=== PATIENT | female | born 1935 | race Hispanic/Latino ===

== ENCOUNTER 2017-01-08 20:22 | Inpatient (IN) | payer MEDICARE, OTHER ==
[2017-01-08 20:24] VITALS: BMI 37.0
[2017-01-08] MEDS ORDERED: diltiaZEM IVPB 100mg in NS 100 ML IV PRN (20:48)
--- NOTE | 2017-01-08 20:49 | ED PDOC ---
Arrival/HPI - General Chief Complaint: Palpitations Time Seen by Provider: 01/08/17 20:23 Historian: Patient - History of Present Illness Narrative History of Present Illness (Text): 01/08/17 20:23 A 81 year old female, whose past medical history includes CAD, CABG (16 years ago), and paroxysmal atrial fibrillation with previous ablation therapy (on eliquis), presents to the emergency department complaining of a irregularly rapid heart rate for the past 24 hours. Patient notes the occasional chest discomfort with coughing. Patient reports she has had a upper respiratory illness. Patient denies any shortness of breath, back pain, leg pain, abdominal pain, or any other complaints at this time. PMD: Dr. Schneider Time/Duration: 24 hours Symptom Onset: Sudden Symptom Course: Unchanged Quality: Other Activities at Onset: Rest Context: Home Past Medical History - Provider Review Nursing Documentation Reviewed: Yes - Infectious Disease Hx of Infectious Diseases: None - Tetanus Immunization Tetanus Immunization: Unknown - Cardiac Hx Atrial Fibrillation: Yes (? ablation) Hx Peripheral Edema: Yes Other/Comment: triple bypass - HEENT Hx HEENT Disorder: (glasses) Hx Macular Degeneration: Yes (Left) - Renal Hx Renal Disorder: No - Endocrine/Metabolic Hx Hypothyroidism: Yes - Hematological/Oncological Hx Blood Disorders: No - Integumentary Hx Dermatological Disorder: No - Musculoskeletal/Rheumatological Hx Arthritis: Yes Hx Unsteady Gait: Yes - Gastrointestinal Hx Gastroesophageal Reflux: Yes - Genitourinary/Gynecological Hx Genitourinary Disorders: No - Psychiatric Hx Anxiety: Yes Hx Depression: Yes Hx Substance Use: No - Surgical History Hx Coronary Artery Bypass Graft: Yes Hx Hysterectomy: Yes - Anesthesia Hx Anesthesia: Yes Hx Anesthesia Reactions: No Hx Malignant Hyperthermia: No - Suicidal Assessment Feels Threatened In Home Enviroment: No Family/Social History - Physician Review Nursing Documentation Reviewed: Yes Family/Social History: Unknown Family HX Smoking Status: Never Smoked Hx Alcohol Use: No Hx Substance Use: No Hx Substance Use Treatment: No Allergies/Home Meds Allergies/Adverse Reactions: Allergies erythromycin base Allergy (Verified 01/08/17 20:25) RASH Penicillins Allergy (Verified 01/08/17 20:25) RASH Review of Systems - Physician Review All systems were reviewed & negative as marked: Yes - Review of Systems Respiratory: Cough. absent: SOB Cardiovascular: Other (irregularly rapid heart rate) Gastrointestinal: absent: Abdominal Pain Musculoskeletal: absent: Back Pain, Other (lower extremity pain) Physical Exam Vital Signs Reviewed: Yes Vital Signs Temp Pulse Resp BP Pulse Ox 01/08/17 22:24 97.9 F 97 H 16 110/67 95 01/08/17 21:05 97.8 F 87 16 125/67 96 01/08/17 20:53 126 H 147/116 H 01/08/17 20:39 98.7 F 126 H 18 147/116 H 96 Temperature: Afebrile Blood Pressure: Hypertensive Pulse: Tachycardic Respiratory Rate: Normal Appearance: Positive for: Well-Appearing, Non-Toxic, Comfortable Pain Distress: None Mental Status: Positive for: Alert and Oriented X 3 - Systems Exam Head: Present: Atraumatic, Normocephalic Pupils: Present: PERRL Extroacular Muscles: Present: EOMI Conjunctiva: Present: Normal Mouth: Present: Moist Mucous Membranes Neck: Present: Normal Range of Motion Respiratory/Chest: Present: Clear to Auscultation, Good Air Exchange. No: Respiratory Distress, Accessory Muscle Use, Wheezes, Rales, Rhonchi Cardiovascular: Present: Irregular Rhythm, Tachycardic. No: Murmurs Abdomen: Present: Normal Bowel Sounds. No: Tenderness, Distention, Peritoneal Signs Back: Present: Normal Inspection Upper Extremity: Present: Normal Inspection. No: Cyanosis, Edema Lower Extremity: Present: Normal Inspection. No: Edema Neurological: Present: GCS=15, CN II-XII Intact, Speech Normal Skin: Present: Warm, Dry, Normal Color. No: Rashes Psychiatric: Present: Alert, Oriented x 3, Normal Insight, Normal Concentration Medical Decision Making ED Course and Treatment: 01/08/17 20:25 Impression: A 81 year old female with irregularly rapid heart rate. Differential Diagnosis include but are not limited to: Tachycardia vs. ACS Plan: -- EKG -- Chest X-ray -- Labs -- Cardizem -- Reassess and disposition Progress Notes: EKG: Ordered, reviewed, and independently interpreted the EKG. Rate : 134 BPM Rhythm : Atrial fibrillation with rapid ventricular response Interpretation : ST/T change in the inferior lateral leads Comparison : No change from previous EKG in 07/2014 for comparison. 01/08/17 20:59 Reviewed radiology, CXR shows no active disease. 01/08/17 22:[address] Gupta, who is aware and agrees with plan. Accepts pt in to her service. Pt will be admitted to Telemetry for rapid atrial fibrillation and bronchitis. Requests Dr. Ordaz on consult. - Lab Interpretations Lab Results: 01/08/17 20:40 01/08/17 20:40 Lab Results 01/08/17 20:40: WBC 14.5 H D, RBC 4.16, Hgb 13.2, Hct 39.4, MCV 94.7, MCH 31.7, MCHC 33.5, RDW 13.8, Plt Count 283, MPV 10.1, PT 12.4 H, INR 1.15 H, APTT 35.2 H , Sodium 136, Potassium 4.0, Chloride 102, Carbon Dioxide 23, Anion Gap 15, BUN 12, Creatinine 0.8, Est GFR ( Amer) > 60, Est GFR (Non-Af Amer) > 60, Random Glucose 134 H, Calcium 9.1, Total Bilirubin 1.2, AST 33, ALT 32, Alkaline Phosphatase 59, Lactate Dehydrogenase 484, Total Creatine Kinase 45, Troponin I 0.02 D, Total Protein 7.9, Albumin 4.0, Globulin 3.8, Albumin/ Globulin Ratio 1.1 I have reviewed the lab results: Yes - RAD Interpretation Narrative RAD Interpretations (Text): CXR shows no active disease. Radiology Orders: 01/08/17 20:34 CHEST PORTABLE [RAD] Stat Cloth Folder Machine: ED Physician - EKG Interpretation Interpreted by ED Physician: Yes Type: 12 lead EKG - Medication Orders Current Medication Orders: Albuterol/Ipratropium (Duoneb 3 Mg/0.5 Mg (3 Ml) Ud) 3 ml IH Q4H PRN PRN Reason: Wheezing Stop: 01/09/17 02:31 diltiaZEM IVPB 100mg in NS (Cardizem 100mg In Ns) 100 mls @ 5 mls/hr IV .Q20H PRN; Protocol; 5 MG/HR PRN Reason: TITRATE PER MD ORDER Last Admin: 01/08/17 21:00 Dose: 5 MLS/HR Titration Intervention Document 01/08/17 21:00 CHEL (Rec: 01/08/17 21:00 [facility] [id number]) Titration Intake Container Volume 100 Titration Dosing Titration Dose 5 IV Rate 5 Intake/Decrease Start eMAR Start Stop Document 01/08/17 21:00 A (Rec: 01/08/17 21:00 [facility]-[id number]) Intravenous Solution Start Date 01/08/17 Start Time 21:00 Levofloxacin/Dextrose (Levaquin 750mg) 150 mls @ 100 mls/hr IV STAT STA Stop: 01/08/17 23:56 Discontinued Medications Diltiazem HCl (Cardizem) 20 mg IVP ONCE ONE Stop: 01/08/17 20:38 Last Admin: 01/08/17 20:53 Dose: 20 MG MAR Pulse and Blood Pressure Document 01/08/17 20:53 A (Rec: 01/08/17 20:53 [id number] Pulse Pulse Rate (60-90 beats/min) 126 Blood Pressure Blood Pressure (100/60-150/90 mm Hg) 147/116 IVP Administration Document 01/08/17 20:53 FJA (Rec: 01/08/17 20:53 [facility]-[id number]) Charges for Administration # of IVP Administrations 1 - Scribe Statement The provider has reviewed the documentation as recorded by the Elie Angelo Provider Scribe Attestation: All medical record entries made by the Scribe were at my direction and personally dictated by me. I have reviewed the chart and agree that the record accurately reflects my personal performance of the history, physical exam, medical decision making, and the department course for this patient. I have also personally directed, reviewed, and agree with the discharge instructions and disposition. Disposition/Present on Arrival - Present on Arrival Any Indicators Present on Arrival: No History of DVT/PE: No History of Uncontrolled Diabetes: No Urinary Catheter: No History of Decub. Ulcer: No History Surgical Site Infection Following: None - Disposition Have Diagnosis and Disposition been Completed?: Yes Diagnosis: Rapid atrial fibrillation, Bronchitis Disposition: HOSPITALIZED Disposition Time: 22:34 Patient Plan: Admission Patient Problems: Current Active Problems Problem Status Diagnosed Bronchitis Acute Rapid atrial fibrillation Acute Condition: STABLE Referrals: Diogo Schneider MD [Primary Care Provider] - Follow up with primary
[2017-01-08 20:51] LABS: HEMATOCRIT 39.4 % (36.0-48.0); MEAN CELL VOLUME 94.7 fL (80.0-105.0); MEAN CORPUSCULAR HEMOGLOBIN 31.7 pg (25.0-35.0); MEAN CORPUSCULAR HGB CONC 33.5 g/dl (31.0-37.0); MEAN PLATELET VOLUME 10.1 fl (7.0-11.0); RED CELL DISTRIBUTION WIDTH 13.8 % (11.5-14.5); WHITE BLOOD COUNT 14.5 10^3/ul (4.5-11.0)
[2017-01-08 21:00] LABS: ALB/GLOB RATIO 1.1 (1.1-1.8); ALKALINE PHOSPHATASE 59 U/L (38-133); ALT/SGPT 32 U/L (7-56); AST/SGOT 33 U/L (15-39); BILIRUBIN,TOTAL 1.2 mg/dL (0.2-1.3); BLOOD UREA NITROGEN 12 mg/dL (7-21); CALCIUM 9.1 mg/dL (8.4-10.5); CARBON DIOXIDE 23 mmol/L (21-33); CHLORIDE 102 mmol/L (98-107); GFR AFRICAN-AMERICAN > 60; GLUCOSE,RANDOM 134 mg/dL (70-110); SODIUM 136 mmol/L (132-148); TOTAL PROTEIN 7.9 g/dL (5.8-8.3)
[2017-01-08 21:10] LABS: TROPONIN I 0.02 ng/mL
[2017-01-08 21:11] LABS: INR 1.15 (0.93-1.08); PARTIAL THROMBOPLASTIN TIME 35.2 Seconds (23.7-30.8)
[2017-01-08] MEDS ORDERED: Albuterol-Ipratrop 3 mg / 0.5 (3 ml) UD IH PRN (22:30)
[2017-01-09] MEDS ORDERED: Levalbuterol 1.25 MG/3 ML Inhal Soln UD IH STA (00:46)
[2017-01-09] MEDS ORDERED: diltiaZEM IVPB 100mg in NS 100 ML IV PRN (00:48)
[2017-01-09] MEDS: guaiFENesin 200 mg/10 ml Syrup UD PO PRN ×3 (00:55→13:23)
--- NOTE | 2017-01-09 01:01 | CP.PCM.PN ---
Subjective - Date & Time of Evaluation Date of Evaluation: 01/09/17 Time of Evaluation: 00:44 - Subjective Subjective: Patient was seen at bedside because she compalined of headache , cough ,has audible wheezing. Head ache is in frontal area,states that it is sinus head ache, severe headache for past one hour. Denies dizziness, nausea, paraesthesia, chest pain, sob. Has mild cough and wheezing. Pertinent medical record was reviewed. This 81 year old white woman was admitted with palpitation, leukocytosis, atrial fibrillation with RVR. Has PMH of CAD,paroxysmal atrial fibrillation, Hypothyroidism, macular degeneration(Left), Arthritis,GERD , CABG, hystrectomy. Objective - Vital Signs/Intake and Output Vital Signs (last 24 hours): Temp Pulse Resp BP Pulse Ox 97.9 F 97 H 16 110/67 95 01/08/17 22:24 01/08/17 22:24 01/09/17 00:19 01/08/17 22:24 01/08/17 22:24 - Medications Medications: Current Medications Albuterol/Ipratropium (Duoneb 3 Mg/0.5 Mg (3 Ml) Ud) 3 ml IH Q4H PRN PRN Reason: Wheezing Stop: 01/09/17 02:31 diltiaZEM IVPB 100mg in NS (Cardizem 100mg In Ns) 100 mls @ 5 mls/hr IV .Q20H PRN; Protocol; 5 MG/HR PRN Reason: TITRATE PER MD ORDER Last Admin: 01/08/17 21:00 Dose: 5 mls/hr - Labs Labs: PT 12.4 Seconds (9.9-11.8) H 01/08/17 20:40 INR 1.15 (0.93-1.08) H 01/08/17 20:40 APTT 35.2 Seconds (23.7-30.8) H 01/08/17 20:40 - Constitutional Appears: Well, No Acute Distress - Head Exam Head Exam: ATRAUMATIC, NORMAL INSPECTION, NORMOCEPHALIC - Eye Exam Eye Exam: Normal appearance - ENT Exam ENT Exam: Normal External Ear Exam - Neck Exam Neck Exam: Normal Inspection - Respiratory Exam Respiratory Exam: Wheezes (Bilateral.), NORMAL BREATHING PATTERN - Cardiovascular Exam Cardiovascular Exam: Irregular Rhythm. absent: JVD - GI/Abdominal Exam GI & Abdominal Exam: absent: Distended - Rectal Exam Rectal Exam: Deferred - Extremities Exam Extremities Exam: Normal Inspection - Back Exam Back Exam: NORMAL INSPECTION - Neurological Exam Neurological Exam: Alert, Oriented x3 - Psychiatric Exam Psychiatric exam: Normal Affect, Normal Mood - Skin Skin Exam: Normal Color Assessment and Plan - Assessment and Plan (Free Text) Assessment: A/P : Stress headache . Cough. Atrial fibrillation with RVR. CAD. Arthritis. GERD. Tylenol 650 mg PO x 1. Xopenex 1.25 mg Neb treatment stat. Robitussin as ordered. Continue present management.
--- NOTE | 2017-01-09 08:02 | RAD ---
HISTORY: Tachycardia COMPARISON: 07/30/2014. FINDINGS: LUNGS: There is pulmonary venous congestion and interstitial pulmonary edema. There is no focal consolidation. There is linear scarring in the left lower lobe. PLEURA: No significant pleural effusion identified, no pneumothorax apparent. CARDIOVASCULAR: There is persistent moderate cardiomegaly. Status post CABG. OSSEOUS STRUCTURES: No significant abnormalities. VISUALIZED UPPER ABDOMEN: Normal. OTHER FINDINGS: None. IMPRESSION: Mild pulmonary venous congestion and interstitial pulmonary edema. Persistent moderate cardiomegaly.
[2017-01-09 09:07] LABS: HEMATOCRIT 36.2 % (36.0-48.0); MEAN CELL VOLUME 95.3 fL (80.0-105.0); MEAN CORPUSCULAR HEMOGLOBIN 32.1 pg (25.0-35.0); MEAN CORPUSCULAR HGB CONC 33.7 g/dl (31.0-37.0); MEAN PLATELET VOLUME 9.8 fl (7.0-11.0); RED CELL DISTRIBUTION WIDTH 13.8 % (11.5-14.5); WHITE BLOOD COUNT 11.3 10^3/ul (4.5-11.0)
[2017-01-09] MEDS: Metoprolol Succinate 25 mg XL Tab PO SCH (09:26)
[2017-01-09 09:42] LABS: FREE T4 1.43 ng/dL (0.78-2.19)
--- NOTE | 2017-01-09 09:44 | CON ---
DATE: 01/09/2017 INDICATIONS: Atrial fibrillation with rapid ventricular response, chest pain, body aches. HISTORY OF PRESENT ILLNESS: This is an 81-year-old woman known to me with chronic atrial fibrillation, on metoprolol and Eliquis, admitted through the Emergency Room yesterday when she presented with diffuse aches, URI symptoms, chest pain (cough and sputum production), headache and rapid heart action. She was found to have atrial fibrillation with rapid ventricular response. She was started on IV Cardizem. She was admitted to telemetry. Today, she is resting in bed with chest pain related to cough, body aches and headache. There is no shortness of breath, orthopnea, PND, syncope, presyncope, lightheadedness, dizziness, vertigo, edema, claudication, rigor, sweats, hemoptysis, abdominal pain, nausea, vomiting, diarrhea, constipation, or melena. PAST MEDICAL HISTORY: Notable for coronary artery disease with remote coronary bypass surgery. She has chronic afib. She underwent a-flutter ablation many years ago. She has a history of hypertension, hyperlipidemia, anxiety, depression, hypothyroidism, macular degeneration and a hysterectomy. There is no history of rheumatic fever, myocardial infarction, congestive heart failure, stroke, TIA or gout. MEDICATIONS: At the time of admission included albuterol, nitroglycerin for p.r.n. use, Flonase, metoprolol ER 25 mg daily, Eliquis 5 mg b.i.d., Wellbutrin , potassium chloride, Levoxyl, Xanax, coenzyme Q10. ALLERGIES: SHE NOTES PENICILLIN AND ERYTHROMYCIN. SOCIAL HISTORY: She lives at home. She is ambulatory. She does not smoke cigarettes. She does not drink alcohol. FAMILY HISTORY: Noncontributory. REVIEW OF SYSTEMS: A 10-point review of systems otherwise unremarkable except as noted above. PHYSICAL EXAMINATION: GENERAL: She is a well-developed woman lying in bed on telemetry in no acute distress. VITAL SIGNS: Notable for atrial fibrillation at 98 beats per minute. She is on an IV Cardizem drip. She is afebrile. Blood pressure 125/55, respirations 16-22, O2 sat 95%-98% on nasal cannula. HEENT: Reveals no neck vein distention, thyromegaly, or carotid bruits. Mucous membranes are moist. Conjunctivae are pink. NECK: Supple. LUNGS: Valles clear. HEART: Revealed normal first and second heart sounds. ABDOMEN: Soft, bowel sounds present. No mass, organomegaly, tenderness, rebound, or guarding. No CVA tenderness. No palpable abdominal aortic aneurysm. EXTREMITIES: Revealed no cyanosis, clubbing, or edema. NEUROLOGIC: She is awake, alert and oriented. SKIN: Warm and dry. No rash or cellulitis. LABORATORY AND IMAGING: A portable chest x-ray revealed mild pulmonary venous congestion, interstitial pulmonary edema. EKG shows atrial fibrillation, rapid ventricular response, ST-T wave changes consistent with ischemia. White count 14,500, hemoglobin 13.2, hematocrit 39.4 , platelet count normal. PT 12.4, INR 1.15, PTT 35.2. Electrolytes, BUN, creatinine, blood sugar, LFTs unremarkable. CK 45, troponin 0.02. IMPRESSION: The patient is an 81-year-old woman with chronic atrial fibrillation, status post coronary bypass surgery remotely with a history of an atrial flutter ablation remotely, presents with URI symptoms including cough, diffuse body aches, headache, chest pain related to coughing and rapid atrial fibrillation. At this time, she is on telemetry. She is getting IV Cardizem. I will start her metoprolol p.o. I will get a troponin this morning. I will order an echocardiogram. I will review her old records. I believe the chest x-ray report is an overread. I do not see evidence of pulmonary edema or congestive heart failure on the portable chest film. She is being cultured. She is getting antibiotics, Xopenex, Tylenol, Robitussin, Eliquis. She can be out of bed to a chair. We will monitor I's and O's. We will check stool for occult blood. I will review her old records. I will follow along with you and make additional recommendations based on her clinical course. Elia Hernandez MD cc: [id number] TT: 01/09/2017 09:44:19 Confirmation # [id number] Dictation # [id number] malik [id number]
[2017-01-09 09:56] LABS: THYROID STIMULATING HORMONE 1.76 mIU/mL (0.46-4.68)
--- NOTE | 2017-01-09 12:58 | CT ---
PROCEDURE: CT Chest without contrast HISTORY: sob COMPARISON: None. TECHNIQUE: Contiguous axial images were obtained through the chest without intravenous contrast enhancement. Sagittal and coronal reconstructions were performed. Radiation dose (DLP): 664 mGy-cm. This CT exam was performed using one or more of the following dose reduction techniques: Automated exposure control, adjustment of the mA and/or kV according to patient size, and/or use of iterative reconstruction technique. FINDINGS: LUNGS: Minimal linear scarring is seen at both lung bases. There is no focal consolidation MEDIASTINUM: Unremarkable thoracic aorta. No aneurysm. There is mild to moderate cardiomegaly. There is aortic and coronary artery calcification. Main pulmonary artery unremarkable. No vascular congestion. No lymphadenopathy. PLEURA: No pleural fluid. No pneumothorax. BONES: No fracture. No destructive lesion. UPPER ABDOMEN: Grossly unremarkable. OTHER FINDINGS: None. IMPRESSION: Unremarkable non-contrast enhanced CT of the chest.
[2017-01-09 13:11] LABS: MEAN CELL VOLUME 94.7 fL (80.0-105.0); MEAN CORPUSCULAR HEMOGLOBIN 31.8 pg (25.0-35.0); MEAN CORPUSCULAR HGB CONC 33.6 g/dl (31.0-37.0); MEAN PLATELET VOLUME 9.6 fl (7.0-11.0); RED CELL DISTRIBUTION WIDTH 13.8 % (11.5-14.5); WHITE BLOOD COUNT 11.9 10^3/ul (4.5-11.0)
[2017-01-09] MEDS: diltiaZEM IVPB 100mg in NS 100 ML IV PRN (13:23)
[2017-01-09] MEDS: Levalbuterol 0.63 MG/3 ML Inhal Soln UD IH PRN ×2 (14:38→20:15)
--- NOTE | 2017-01-09 16:25 | CARD ---
APPROVED REPORT EKG Measurement Heart [id number] <Conclusion> Atrial fibrillation with rapid ventricular response ST & T wave abnormality, consider inferolateral ischemia or digitalis effect Abnormal ECG
[2017-01-10] MEDS: diltiaZEM IVPB 100mg in NS 100 ML IV PRN (04:42)
[2017-01-10] MEDS: guaiFENesin 200 mg/10 ml Syrup UD PO PRN ×2 (04:47→20:33)
[2017-01-10] MEDS: Levalbuterol 0.63 MG/3 ML Inhal Soln UD IH PRN ×3 (05:00→23:10)
[2017-01-10 06:52] LABS: ALKALINE PHOSPHATASE 51 U/L (38-133); ALT/SGPT 24 U/L (7-56); AST/SGOT 28 U/L (15-39); BILIRUBIN,TOTAL 0.9 mg/dL (0.2-1.3); BLOOD UREA NITROGEN 12 mg/dL (7-21); CALCIUM 8.7 mg/dL (8.4-10.5); CARBON DIOXIDE 28 mmol/L (21-33); CHLORIDE 102 mmol/L (95-110); GFR AFRICAN-AMERICAN > 60; GLUCOSE,RANDOM 102 mg/dL (70-110); SODIUM 135 mmol/L (132-148); TOTAL PROTEIN 6.8 g/dL (5.8-8.3)
[2017-01-10 06:53] LABS: HEMATOCRIT 34.9 % (36.0-48.0); MEAN CELL VOLUME 95.1 fL (80.0-105.0); MEAN CORPUSCULAR HEMOGLOBIN 31.6 pg (25.0-35.0); MEAN CORPUSCULAR HGB CONC 33.2 g/dl (31.0-37.0); MEAN PLATELET VOLUME 10.3 fl (7.0-11.0); RED CELL DISTRIBUTION WIDTH 13.9 % (11.5-14.5); WHITE BLOOD COUNT 9.2 10^3/ul (4.5-11.0)
[2017-01-10] MEDS: Metoprolol Succinate 25 mg XL Tab PO SCH (07:55)
--- NOTE | 2017-01-10 08:12 | CP.PCM.PN ---
Subjective - Date & Time of Evaluation Date of Evaluation: 01/10/17 Time of Evaluation: 08:00 - Subjective Subjective: Stable on 2R. She feels better but still cough with brown sputum and rib pains. V/S noted. AF PE: Lungs: few rhonchi Cor.: irreg., S1S2 Abd.: soft xt.: no edema Neuro.: alert I/O= 1420/1700 BC X2 NG at 24 hrs. Labs: noted. trops neg x 2 sets Echo done: will check. Objective - Vital Signs/Intake and Output Vital Signs (last 24 hours): Temp Pulse Resp BP Pulse Ox 98.2 F 93 H 20 149/65 100 01/10/17 06:00 01/10/17 06:00 01/10/17 06:00 01/10/17 06:00 01/10/17 06:00 Intake and Output: 01/10/17 01/10/17 06:59 18:59 Intake Total 700 65 Output Total 950 Balance -250 65 - Medications Medications: Current Medications Acetaminophen (Tylenol 325mg Tab) 650 mg PO Q4 PRN PRN Reason: Headache Last Admin: 01/10/17 04:47 Dose: 650 mg Apixaban (Eliquis) 5 mg PO BID JENNY PRN Reason: Protocol Last Admin: 01/09/17 18:54 Dose: 5 mg Guaifenesin (Robitussin) 200 mg PO Q4H PRN PRN Reason: Cough and congestion Last Admin: 01/10/17 04:47 Dose: 200 mg diltiaZEM IVPB 100mg in NS (Cardizem 100mg In Ns) 100 mls @ 5 mls/hr IV .Q20H PRN; Protocol; 5 MG/HR PRN Reason: TITRATE PER MD ORDER Last Admin: 01/10/17 04:42 Dose: 5 mls/hr Levalbuterol HCl (Xopenex) 0.63 mg IH [id number] PRN PRN Reason: Shortness of Breath Last Admin: 01/10/17 05:00 Dose: 0.63 mg Metoprolol Succinate (Toprol Xl) 25 mg PO BRK JENNY Last Admin: 01/10/17 07:55 Dose: 25 mg - Labs Labs: 01/10/17 06:00 01/10/17 06:00 PT 12.4 Seconds (9.9-11.8) H 01/08/17 20:40 INR 1.15 (0.93-1.08) H 01/08/17 20:40 APTT 35.2 Seconds (23.7-30.8) H 01/08/17 20:40 Assessment and Plan - Assessment and Plan (Free Text) Plan: Assessment: Cough/Sputum Production/Chest Pain, Palpitations URI/Bronchitis AF CAD/CABG S/P remote A. Flutter ablation Chronic AF on Eliquis HLD Anxiety/Depression Hypothyroidism Macular Degeneration S/P hysterectomy Plan: As per Dr. Mullins Sputum C+S Check Echo PO Jyoti OOB to chair
--- NOTE | 2017-01-10 08:53 | CARD ---
APPROVED REPORT EXAM: Two-dimensional and M-mode echocardiogram with Doppler and color Doppler. Other Information Quality : AverageRhythm : INDICATION Dyspnea Atrial Fibrillation , COUGH 2D DIMENSIONS Left Atrium (2D)4.5 (1.6-4.0cm)IVSd1.4 (0.7-1.1cm) LVDd4.5 (3.9-5.9cm)PWd1.2 (0.7-1.1cm) LVDs3.6 (2.5-4.0cm)FS (%) 17.6 % LVEF (%)40.0 (>50%) M-Mode DIMENSIONS Aortic Root2.80 (2.2-3.7cm)Aortic Cusp Exc.1.70 (1.5-2.0cm) Aortic Valve AoV Peak Ysqbkhen124.0cm/Iam Peak GR.18mmHgLVOT Peak Psofjmnb563.0cm/s LVOT VTI24.20cmAI P 1/2 Didh817uf Mitral Valve E/A ratio0.0 TDI E/Lateral E'0.0E/Medial E'0.0 Pulmonary Valve PV Peak Iuzbbsgz43.1cm/sPV Peak Grad.2mmHg Tricuspid Valve TR Peak Mvgbliip711xp/sRAP [id number] Peak Gr.58mmHg [id number] LEFT VENTRICLE The left ventricle is normal size. There is normal left ventricular wall thickness. Left ventricle systolic function is mildly impaired. The Ejection Fraction is 40-45%. There is mild global hypokinesis. RIGHT VENTRICLE The right ventricle is normal size. ATRIA The left atrium is moderately dilated. The right atrium is moderately dilated. AORTIC VALVE The aortic valve is mildly sclerotic. There is trace aortic regurgitation. MITRAL VALVE The mitral valve is normal in structure. Mitral regurgitation is moderate. TRICUSPID VALVE The tricuspid valve is normal in structure. There is moderate to severe tricuspid regurgitation. There is moderate-severe pulmonary hypertension. PULMONIC VALVE The pulmonary valve is normal in structure. GREAT VESSELS The aortic root is normal in size. PERICARDIAL EFFUSION There is no pericardial effusion. <Conclusion> The left ventricle is normal size. There is normal left ventricular wall thickness. Left ventricle systolic function is mildly impaired. The Ejection Fraction is 40-45%. There is mild global hypokinesis. There is trace aortic regurgitation. Mitral regurgitation is moderate. There is moderate to severe tricuspid regurgitation. There is moderate-severe pulmonary hypertension.
[2017-01-10] MEDS: Metoprolol Succinate 50 mg XL Tab PO SCH (09:11)
[2017-01-11 05:24] LABS: URINE BILIRUBIN NEGATIVE (NEGATIVE); URINE BLOOD NEGATIVE (NEGATIVE); URINE GLUCOSE (UA) NEGATIVE (NEGATIVE); URINE KETONE NEGATIVE (NEGATIVE); URINE LEUKOCYTE ESTERASE SMALL Leu/uL (NEGATIVE); URINE PROTEIN NEGATIVE mg/dL (<30 mg/dL); URINE UROBILINOGEN 0.2 E.U./dL (<1 E.U./dL)
[2017-01-11 05:34] LABS: URINE APPEARANCE SLIGHT-CLOUDY (CLEAR); URINE COLOR YELLOW (YELLOW)
[2017-01-11 05:40] LABS: URINE EPITHELIAL CELLS 0 - 2 /hpf (0-5); URINE RBC 0 - 2 /hpf (0-2)
[2017-01-11] MEDS ORDERED: Levalbuterol 0.63 MG/3 ML Inhal Soln UD IH PRN (06:32)
--- NOTE | 2017-01-11 07:34 | HP ---
CHIEF COMPLAINT: Cough times and cough x 1 week with palpitations. HISTORY OF PRESENT ILLNESS: This is an 81-year-old woman, new patient to me, whom I am meeting for the first time today, 01/11/20 at the noon hour. I know her, since her son and I were in high school together, so she remembers me from my high school days, but this is the first time I am meeting her in a doctor/ patient relationship. Apparently, the patient reports that for a week at home she developed worsening cough with chest congestion and sputum production. Approximately 24 hours prior to admission, she felt herself go into atrial fibrillation. She tried Valsalva and cough, but it would not break. She does have a history of atrial fibrillation in 2013, but she converted back to sinus and reportedly, per her report, was in sinus rhythm since then. She see her farm laborer, Dr. Hernandez, on a regular basis, and with these symptoms she came to the Emergency Room late on the evening of Monday, 01/08. The call was placed from the Emergency Room to her regular physician who was being covered by another physician who came to see the patient yesterday. The patient then declined that physician and asked that her case be transferred to ok. Thankfully, a protection consultant had seen her and her orders were written, antibiotics were begun, and so today I am doing her history and physical after seeing her for the first time. She is already on antibiotics and cardiac medicines to control her rate. PAST MEDICAL HISTORY: Significant for atrial fibrillation in 2013, a myocardial infarction in 2000, coronary triple bypass surgery in 2000, cardiac ablation for AFib in 10/2013. PAST SURGICAL HISTORY: Significant for hysterectomy in 1994. ALLERGIES: SHE IS ALLERGIC TO PENICILLIN. HOME MEDICATIONS: Include p.r.n. aerosol treatment, and I am not certain that she is compliant with any other home medications. She does see her farm laborer , Dr. Hernandez, on a regular basis. SOCIAL HISTORY: She is a . Her postoperatively at the [facility]. She does not smoke or drink alcohol. REVIEW OF SYSTEMS: Multipoint review of systems is significant only for mild arthritis-type symptoms. So, essentially that is all. On physical exam, the patient was seen this Monday in room 260, bed 1. She is sitting out of bed in a chair. Awake, alert, and clear, and in good spirits. She is in no acute respiratory distress, but does have quite an annoying wet, phlegmy, congestive cough. Her heart rate remains irregular, but with a controlled rate. HEAD AND NECK: Unremarkable. Conjunctivae are pink. Mucous membranes are moist. NECK: Supple, without masses. There is no JVD present. Thyroid is not palpable. LUNGS: Clear. HEART: Irregular. ABDOMEN: Soft. Moderately overweight. EXTREMITIES: She has heavy legs, chubby ankles, but only minimal trace edema. IMPRESSION: 1. Severe bronchitis versus early pneumonia. 2. New onset/recurrence of atrial fibrillation. 3. History of cardiac ablation. 4. Status post coronary artery bypass graft x 3 in 2000. 5. PENICILLIN ALLERGY. 6. Never smoked. PLAN: Will continue current course, with cardiology followup and medications regarding her AFib, including IV Cardizem drip, Eliquis, and Lasix, and metoprolol succinate 50 mg daily. Will continue Xopenex. As I a visit her I see a bag of Azactam hanging in her current IV. Will continue treatment as an outpatient bronchitis with oral azithromycin. CT scan of the chest and chest x-ray were reviewed; both unremarkable. Will follow closely and consider pulmonary followup and/or infectious disease if her respiratory infection symptoms do not subside. Anatoly Mullins MD cc: [id number] TT: 01/11/2017 07:33:31 jn MTDD
[2017-01-11 07:47] LABS: ADD MANUAL DIFF? NO
[2017-01-11] MEDS: Budesonide 0.5 mg/2 ml Inhal Susp UD IH SCH ×2 (07:47→19:57)
[2017-01-11] MEDS: Levalbuterol 0.63 MG/3 ML Inhal Soln UD IH SCH ×3 (07:48→19:57)
[2017-01-11 07:55] LABS: BASO # 0.03 K/mm3 (0.0-2.0); BASO % 0.5 % (0.0-3.0); EOS # 0.5 (0.0-0.7); EOS % 7.7 % (1.5-5.0); GRAN # 3.86 (1.4-6.5); HEMATOCRIT 35.9 % (36.0-48.0); LYMPH # 1.6 (1.2-3.4); LYMPH % 23.9 % (22.0-35.0); MEAN CELL VOLUME 95.7 fL (80.0-105.0); MEAN CORPUSCULAR HEMOGLOBIN 31.2 pg (25.0-35.0); MEAN CORPUSCULAR HGB CONC 32.6 g/dl (31.0-37.0); MEAN PLATELET VOLUME 10.4 fl (7.0-11.0); MONO # 0.6 (0.1-0.6); MONO % 8.9 % (1.0-6.0); PLATELET COUNT 282 10^3/uL (120.0-450.0); RED CELL DISTRIBUTION WIDTH 13.9 % (11.5-14.5); WHITE BLOOD COUNT 6.5 10^3/ul (4.5-11.0)
[2017-01-11] MEDS: Metoprolol Succinate 50 mg XL Tab PO SCH (08:03)
[2017-01-11 08:17] LABS: ALKALINE PHOSPHATASE 55 U/L (38-133); ALT/SGPT 36 U/L (7-56); AST/SGOT 51 U/L (15-39); BILIRUBIN,TOTAL 0.9 mg/dL (0.2-1.3); BLOOD UREA NITROGEN 11 mg/dL (7-21); CALCIUM 8.8 mg/dL (8.4-10.5); CARBON DIOXIDE 32 mmol/L (21-33); CHLORIDE 98 mmol/L (98-107); GFR AFRICAN-AMERICAN > 60; GLUCOSE,RANDOM 89 mg/dL (70-110); MAGNESIUM 2.1 mg/dL (1.7-2.2); POTASSIUM 3.9 mmol/L (3.6-5.0); SODIUM 137 mmol/L (132-148)
--- NOTE | 2017-01-11 09:04 | CON ---
DATE: 01/11/2017 REASON FOR CONSULTATION: Cough. REFERRING PHYSICIAN: Dr. Mullins. HISTORY OF PRESENT ILLNESS: The patient is an 81-year-old female with past medical history significant for chronic atrial fibrillation (on Eliquis as outpatient), coronary artery disease, open heart surgery in the past, recurrent bronchitis, allergies, who presented to [facility] -- originally on 01/08/17 -- with main complaint of irregular rapid heart rate. In the Emergency Room, the patient was noted to be in rapid atrial fibrillation. She was thus admitted for additional evaluation. The patient is not short of breath at rest. However, the patient does state to dyspnea on exertion, cough, and minimal sputum production for the past 5 days. There is no history of chest pain, coughing up of blood or chest pain -- made worse with deep respirations. There is no history of temperatures, chills or infectious exposure. There is no history of night sweats, weight loss or appetite change prior to the above events. No history of leg or calf pains. No history of syncope or diaphoresis. No history of recent travel or trauma. REVIEW OF SYSTEMS: No history of nausea, vomiting or diarrhea. No acute urinary symptoms. No new neurological or musculoskeletal complaints. Rest of the review of systems is negative. ALLERGIES: TO ERYTHROMYCIN AND PENICILLIN. SOCIAL HISTORY: Negative for tobacco. Negative for alcohol. FAMILY HISTORY: No inheritable diseases. HOME MEDICATIONS: Not listed in the chart at the present time. PHYSICAL EXAMINATION: GENERAL: The patient appears comfortable at rest. She is not short of breath. VITAL SIGNS: Temperature is 98.2, pulse 87, respirations 18, blood pressure 142 /80. Oxygen saturation on nasal cannula is 100%. HEENT: Normocephalic, atraumatic. NECK: No JVD. CARDIOVASCULAR: Systolic ejection murmur at the lower left sternal border. No S3 gallop. LUNGS: Decreased breath sounds at the bases. Bilateral rhonchi and wheezing are appreciated. EXTREMITIES: Mild edema. No cyanosis, no clubbing. Calves are nontender to palpation. GASTROINTESTINAL: Abdomen is soft, nontender, nondistended. Bowel sounds are positive. SKIN: No acute rash. NEUROLOGIC: Limited at the present time. PERTINENT LABORATORY DATA: CAT scan of the chest was done yesterday and reviewed. There is minimal scarring noted at both lung bases. There is no focal consolidation or mass seen. There is no lymphadenopathy. There are no acute findings. CBC: White count 9.2, hemoglobin 11.6, hematocrit 34.9, platelets of 237. Complete metabolic profile: Completely within normal limits. EKG done in the Emergency Room: Rapid atrial fibrillation. IMPRESSION: 1. Acute bronchitis. 2. Status post rapid atrial fibrillation. 3. Coronary artery disease. 4. Mild anemia. PLAN: The patient presents to [facility] with main complaint of rapid irregular heartbeat for one day. In the Emergency Room, the patient was noted to be in rapid atrial fibrillation and thus admitted for additional evaluation and treatment. As above, in addition, the patient also complains of dyspnea on exertion, cough, and minimal sputum production for the past 5 days. I did review the CAT scan of the chest. There are no acute findings noted. On physical exam, the patient is in mild to moderate bronchospasm. However, there is no significant alveolar arterial gradient. Oxygen saturation on nasal cannula is 100%. I will start the patient on scheduled half strength Xopenex nebulizer treatments(given her arrhythmias), inhaled Pulmicort and low dose intravenous steroids this morning. I would continue with the treatment for the cardiac arrhythmias as per cardiology. Input by Dr. Hernandez is noted. The patient's ventricular response has been much more controlled over the past few days. Repeat a.m. labs are pending. Cultures are so far negative. Additional pulmonary intervention will be based on the clinical status of the patient. I will discuss the above with Dr. Mullins this morning. Thank you very much for this pulmonary consultation. Ishmael Drake MD cc: [id number] TT: 01/11/2017 09:03:49 Confirmation # [id number] Dictation # [id number] briseyda TRUJILLO
[2017-01-11] MEDS: MethylPREDNISolone 40 mg Vial IVP SCH ×2 (09:05→21:13)
[2017-01-11] MEDS: guaiFENesin 200 mg/10 ml Syrup UD PO PRN ×2 (09:40→21:14)
[2017-01-11] MEDS ORDERED: levoFLOXacin 500 MG TAB PO ONE (10:00)
--- NOTE | 2017-01-11 13:45 | PN ---
DATE: 01/11/2017 SUBJECTIVE: The patient is seen sitting in a chair on telemetry. She is feeling better. She feels that her symptoms have improved significantly since initiating steroid therapy earlier today. She de nies any chest pain. She is unaware of any palpitations. She remains in atrial fibrillation. CURRENT MEDICATIONS: Include Eliquis 5 mg b.i.d., Lasix 20 mg daily, Levaquin, Pulmicort inhaler, Ro bitussin, Solu-Medrol, Toprol-XL 50 mg daily and Xopenex p.r.n. OBJECTIVE: GENERAL: She is an overweight elderly woman. VITAL SIGNS: Her blood pressure is 142/66 with a pulse of 90 in atrial fibrillation, respirations ar e 14. She is afebrile. HEENT: No JVD. CHEST: Bilateral coarse rhonchi noted. No rales heard. HEART: PMI displaced laterally with an irregularly irregular rhythm. ABDOMEN: Soft, obese, nontender, normoactive bowel sounds. EXTREMITIES: Lymphedema is present, however, no significant pedal edema is noted. DIAGNOSTIC DATA: White count is 6.5, hemoglobin and hematocrit 11.7 and 35.9 with a platelet count o f 282,000. Potassium 3.9, BUN and creatinine are [address] of the chest was reportedly unremar kable. Echocardiogram reveals moderate mitral regurgitation with moderate to severe tricuspid regurg itation, mildly reduced LV systolic function and mild global LV hypokinesis. IMPRESSION: 1. Chronic obstructive pulmonary disease exacerbation, clinically improved. 2. Chronic atrial fibrillation, currently with rate control and anticoagulated. 3. Mild left ventricular systolic dysfunction, clinically not in heart failure. 4. Mitral and tricuspid regurgitation. RECOMMENDATIONS: Continuation of her current medications is advisable. Rate control therapy can be titrated as needed. If she has significant bronchospasm which is felt to be worsened by beta mariza use, switching to oral diltiazem can be considered. No other cardiac workup appears necessary at e present time. We will continue to follow along through the hospital course as needed. Diogo Schneider MD cc: [id number] TT: 01/11/2017 13:44:50 Confirmation # [id number] Dictation # [id number] tn
[2017-01-12] MEDS: Levalbuterol 0.63 MG/3 ML Inhal Soln UD IH SCH ×4 (02:14→19:34)
[2017-01-12] MEDS: Budesonide 0.5 mg/2 ml Inhal Susp UD IH SCH ×2 (07:20→19:33)
[2017-01-12] MEDS: Metoprolol Succinate 50 mg XL Tab PO SCH (07:43)
--- NOTE | 2017-01-12 08:26 | PN ---
DATE: 01/12/2017 SUBJECTIVE: The patient appears comfortable this morning. She is not short of breath at rest. PHYSICAL EXAMINATION: VITAL SIGNS: Temperature is 97.8, pulse on the monitor is 92, respiratory rate 20, blood pressure 142/76. Oxygen saturation on nasal cannula is 98%. HEENT: Normocephalic, atraumatic. No JVD. CARDIOVASCULAR: Systolic ejection murmur at the lower left sternal border. No S3 gallop. LUNGS: Improved breath sounds at the bases. Less rhonchi. No wheezing this morning. EXTREMITIES: Mild edema. No cyanosis, no clubbing. Calves are nontender to palpation. GASTROINTESTINAL: Abdomen is soft, nontender, nondistended. Bowel sounds are positive. SKIN: No acute rash. NEUROLOGIC: Limited at the present time. IMPRESSION: 1. Acute bronchitis. 2. Status post rapid atrial fibrillation. 3. Coronary artery disease. 4. Mild anemia. PLAN: The patient appears comfortable this morning. She is not short of breath at rest. She states she is feeling much better overall. On physical exam, her bronchospasm is certainly less. In addition, the alveolar-arterial gradient is also less. Oxygen saturation on nasal cannula is now 98%. I will continue the current nebulizer treatments and decrease the intravenous steroids this morning. The patient remains on antibiotic therapy. There are no temperatures noted. The leukocytosis has completely resolved. Cardiology evaluation is noted. The patient remains on a Cardizem drip. Clinical status of the patient is certainly improved -- compared to the initial presentation. The patient is reminded to be out of bed as much as possible. I will discuss the above with the attending physician. Ishmael Drake MD cc: [id number] TT: 01/12/2017 08:25:13 Confirmation # [id number] Dictation # [id number] en MTDD
[2017-01-12] MEDS: MethylPREDNISolone 40 mg Vial IVP SCH ×2 (09:03→23:03)
[2017-01-12 10:31] LABS: ADD MANUAL DIFF? NO
[2017-01-12 10:38] LABS: BASO # 0.01 K/mm3 (0.0-2.0); BASO % 0.1 % (0.0-3.0); GRAN % 87.3 % (50.0-68.0); HEMATOCRIT 37.5 % (36.0-48.0); LYMPH # 0.8 (1.2-3.4); LYMPH % 6.7 % (22.0-35.0); MEAN CELL VOLUME 93.1 fL (80.0-105.0); MEAN CORPUSCULAR HEMOGLOBIN 32.3 pg (25.0-35.0); MEAN CORPUSCULAR HGB CONC 34.7 g/dl (31.0-37.0); MEAN PLATELET VOLUME 9.7 fl (7.0-11.0); MONO # 0.7 (0.1-0.6); MONO % 5.9 % (1.0-6.0); PLATELET COUNT 340 10^3/uL (120.0-450.0); RED CELL DISTRIBUTION WIDTH 13.2 % (11.5-14.5); WHITE BLOOD COUNT 12.1 10^3/ul (4.5-11.0)
[2017-01-12 10:43] LABS: ALKALINE PHOSPHATASE 55 U/L (38-133); ALT/SGPT 50 U/L (7-56); AST/SGOT 50 U/L (15-39); BILIRUBIN,TOTAL 0.7 mg/dL (0.2-1.3); BLOOD UREA NITROGEN 18 mg/dL (7-21); CALCIUM 9.7 mg/dL (8.4-10.5); CARBON DIOXIDE 28 mmol/L (21-33); CHLORIDE 94 mmol/L (98-107); GFR AFRICAN-AMERICAN > 60; GLUCOSE,RANDOM 125 mg/dL (70-110); MAGNESIUM 2.2 mg/dL (1.7-2.2); POTASSIUM 4.5 mmol/L (3.6-5.0); SODIUM 133 mmol/L (132-148)
--- NOTE | 2017-01-12 11:24 | CP.PCM.PN ---
Subjective - Date & Time of Evaluation Date of Evaluation: 01/12/17 Time of Evaluation: 08:00 - Subjective Subjective: Stable on 2R. She feels better but still some cough. + ambulation yesterday. V/S noted. AF, rate controlled PE: Lungs: few rhonchi Cor.: irreg., S1S2 Abd.: soft xt.: no edema Neuro.: alert I/O= 600/1300 BC X2 NG at 3 days. Sputum: Nl Karen Labs: noted. WBC=12,100 Echo: Mild LVD with EF ~ 40 - 45%, Moderate MR, Mod/Sev. TR, Mod/Sev PH CT Chest: unremarkable. Objective - Vital Signs/Intake and Output Vital Signs (last 24 hours): Temp Pulse Resp BP Pulse Ox 97.8 F 102 H 22 130/69 98 01/12/17 06:00 01/12/17 07:43 01/12/17 06:00 01/12/17 09:03 01/12/17 06:00 Intake and Output: 01/12/17 01/12/17 06:59 18:59 Intake Total 120 Output Total 900 Balance -780 - Medications Medications: Current Medications Acetaminophen (Tylenol 325mg Tab) 650 mg PO Q4 PRN PRN Reason: Headache Last Admin: 01/11/17 09:40 Dose: 650 mg Apixaban (Eliquis) 5 mg PO BID JENNY PRN Reason: Protocol Last Admin: 01/12/17 09:03 Dose: 5 mg Budesonide (Pulmicort Respules) 0.5 mg IH [id number] [facility] Last Admin: 01/12/17 07:20 Dose: 0.5 mg Furosemide (Lasix) 20 mg PO DAILY [facility] Last Admin: 01/12/17 09:03 Dose: 20 mg Guaifenesin (Robitussin) 200 mg PO Q4H PRN PRN Reason: Cough and congestion Last Admin: 01/11/17 21:14 Dose: 200 mg diltiaZEM IVPB 100mg in NS (Cardizem 100mg In Ns) 100 mls @ 5 mls/hr IV .Q20H PRN; Protocol; 5 MG/HR PRN Reason: TITRATE PER MD ORDER Last Admin: 01/10/17 04:42 Dose: 5 mls/hr Levalbuterol HCl (Xopenex) 0.63 mg IH Q2 PRN PRN Reason: Shortness of Breath Levalbuterol HCl (Xopenex) 0.63 mg IH [id number] [facility] Last Admin: 01/12/17 07:21 Dose: 0.63 mg Levofloxacin (Levaquin) 250 mg PO Q24H [facility] Last Admin: 01/12/17 09:09 Dose: 250 mg Methylprednisolone (Solu-Medrol) 20 mg IVP Q12 [facility] Last Admin: 01/12/17 09:03 Dose: 20 mg Metoprolol Succinate (Toprol Xl) 50 mg PO BRK [facility] Last Admin: 01/12/17 07:43 Dose: 50 mg - Labs Labs: 01/12/17 10:10 01/12/17 10:10 PT 12.4 Seconds (9.9-11.8) H 01/08/17 20:40 INR 1.15 (0.93-1.08) H 01/08/17 20:40 APTT 35.2 Seconds (23.7-30.8) H 01/08/17 20:40 Assessment and Plan - Assessment and Plan (Free Text) Plan: Assessment: Cough/Sputum Production/Chest Pain, Palpitations URI/Bronchitis AF CAD/CABG Echo: Mild LVD, EF ~ 40 - 45%, Moderate MR, Mod/Sev, TR and PH S/P remote A. Flutter ablation Chronic AF on Eliquis HLD Anxiety/Depression Hypothyroidism Macular Degeneration S/P hysterectomy Plan: As per Drs. Mullins and Noelle Montes OOB to chair/ambulate/PT Hopefully home soon. Out-pt. cardilogy F/U to be arranged.
--- NOTE | 2017-01-12 22:58 | PN ---
DATE: 01/12/2017 SUBJECTIVE: The patient was seen this afternoon in room 260, bed 1. She is sitting comfort ably out of bed, awake, alert, clear, and in good spirits. Her breathing is improved dramatically si nce starting her on antibiotics and steroids during this admission. Her heart rate is well controlle d. She remains in atrial fibrillation. PHYSICAL EXAMINATION: LUNGS: Show good aeration, right and left. HEART: Regular, not tachycardic. EXTREMITIES: Cubby ankles, but no significant edema. IMPRESSION: 1. Bronchitis. 2. Bronchospasm. 3. Atrial fibrillation. PLAN: The patient will be up and out of bed today. We will discontinue telemetry, ambulate her in t he hallways and she should be ready for discharge to home tomorrow. Anatoly Mullins MD cc: [id number] TT: 01/12/2017 22:57:44 Confirmation # [id number] Dictation # [id number] katerina
[2017-01-12] MEDS: guaiFENesin 200 mg/10 ml Syrup UD PO PRN (23:01)
[2017-01-13] MEDS: Levalbuterol 0.63 MG/3 ML Inhal Soln UD IH SCH ×4 (01:13→19:19)
--- NOTE | 2017-01-13 07:18 | PN ---
DATE: 01/13/2017 SUBJECTIVE: The patient appears very comfortable at rest. She is not short of breath. PHYSICAL EXAMINATION: VITAL SIGNS: Temperature is 97.4, pulse this morning is approximately 80, respirations 18, last blood pressure recorded -- 137/80. Last oxygen saturation measured -- on nasal cannula -- 98%. HEENT: Normocephalic, atraumatic. No JVD. CARDIOVASCULAR: Systolic ejection murmur at the lower left sternal border. No S3 gallop. LUNGS: Improved breath sounds at the bases. Minimal/less rhonchi. No wheezing this morning. EXTREMITIES: Mild edema. No cyanosis. No clubbing. Calves are nontender to palpation. GASTROINTESTINAL: Abdomen is soft, nontender, nondistended. Bowel sounds are positive. SKIN: No acute rash. NEUROLOGIC: Limited at the present time. IMPRESSION: 1. Acute bronchitis. 2. Status post rapid atrial fibrillation. 3. Coronary artery disease. 4. Mild anemia. PLAN: The patient appears very comfortable this morning. She is not short of breath at rest. She states she is feeling much better overall. On physical exam, her bronchospasm continues to resolve. In addition, the alveolar arterial gradient also continues to resolve. I will continue with the current nebulizer treatments and change to oral steroids this morning. The patient remains on antibiotic therapy. There are no temperatures noted. Cardiology evaluation is also ongoing. Input by Dr. Hernandez is noted. Clinical status of the patient is significantly improved -- compared to the initial presentation. The patient is advised to make herself more active this morning -- and see how she feels. I will discuss the above with Dr. Mullins. Ishmael Drake MD cc: [phone] TT: 01/13/2017 07:18:29 Confirmation # [id number] Dictation # [id number] jn MTDD
[2017-01-13] MEDS: Budesonide 0.5 mg/2 ml Inhal Susp UD IH SCH ×2 (07:38→19:19)
--- NOTE | 2017-01-13 08:56 | CP.PCM.PN ---
Subjective - Date & Time of Evaluation Date of Evaluation: 01/13/17 Time of Evaluation: 08:00 - Subjective Subjective: Stable on 2R. She feels better but still some cough. + ambulation yesterday. V/S noted. AF, rate controlled PE: Lungs: few rhonchi Cor.: irreg., S1S2 Abd.: soft xt.: no edema Neuro.: alert I/O= 1200/600 BC X2 NG at 4 days. Sputum: Nl Karen Labs 01/12 noted. Echo: Mild LVD with EF ~ 40 - 45%, Moderate MR, Mod/Sev. TR, Mod/Sev PH CT Chest: unremarkable. Objective - Vital Signs/Intake and Output Vital Signs (last 24 hours): Temp Pulse Resp BP Pulse Ox 97.4 F L 90 20 166/92 H 99 01/13/17 08:34 01/13/17 08:34 01/13/17 08:34 01/13/17 08:34 01/13/17 08:34 Intake and Output: 01/13/17 01/13/17 06:59 18:59 Intake Total 480 120 Balance 480 120 - Medications Medications: Current Medications Acetaminophen (Tylenol 325mg Tab) 650 mg PO Q4 PRN PRN Reason: Headache Last Admin: 01/11/17 09:40 Dose: 650 mg Apixaban (Eliquis) 5 mg PO BID [facility] PRN Reason: Protocol Last Admin: 01/12/17 18:11 Dose: 5 mg Budesonide (Pulmicort Respules) 0.5 mg IH [id number] [facility] Last Admin: 01/13/17 07:38 Dose: 0.5 mg Furosemide (Lasix) 20 mg PO DAILY [facility] Last Admin: 01/12/17 09:03 Dose: 20 mg Guaifenesin (Robitussin) 200 mg PO Q4H PRN PRN Reason: Cough and congestion Last Admin: 01/12/17 23:01 Dose: 200 mg Levalbuterol HCl (Xopenex) 0.63 mg IH Q2 PRN PRN Reason: Shortness of Breath Last Admin: 01/12/17 17:53 Dose: 0.63 mg Levalbuterol HCl (Xopenex) 0.63 mg IH [id number] [facility] Last Admin: 01/13/17 07:38 Dose: 0.63 mg Levofloxacin (Levaquin) 250 mg PO Q24H [facility] Last Admin: 01/12/17 09:09 Dose: 250 mg Metoprolol Succinate (Toprol Xl) 50 mg PO BRK [facility] Last Admin: 01/12/17 07:43 Dose: 50 mg Prednisone (Prednisone Tab) 30 mg PO DAILY [facility] - Labs Labs: 01/12/17 10:10 01/12/17 10:10 PT 12.4 Seconds (9.9-11.8) H 01/08/17 20:40 INR 1.15 (0.93-1.08) H 01/08/17 20:40 APTT 35.2 Seconds (23.7-30.8) H 01/08/17 20:40 Assessment and Plan - Assessment and Plan (Free Text) Plan: Assessment: Cough/Sputum Production/Chest Pain, Palpitations URI/Bronchitis AF CAD/CABG Echo: Mild LVD, EF ~ 40 - 45%, Moderate MR, Mod/Sev, TR and PH S/P remote A. Flutter ablation Chronic AF on Eliquis HLD Anxiety/Depression Hypothyroidism Macular Degeneration S/P hysterectomy Plan: As per Drs. Mullins and Noelle ALANIZ to chair/ambulate/PT Hopefully home soon. Out-pt. cardiology F/U to be arranged.
[2017-01-13] MEDS: Metoprolol Succinate 50 mg XL Tab PO SCH (10:31)
--- NOTE | 2017-01-13 11:48 | PN ---
DATE: 01/13/2017 SUBJECTIVE: The patient is an 81-year-old female who was admitted on 01/08 with atrial fibrillation and rapid ventricular response. She is known to have a history of atrial fibrillation, in 2013. At that time, she had cardiac ablation for the atrial fibrillation. She is also status post myocardial infarction in 2000 and triple coronary artery bypass surgery in 2000. She is status post hysterectom y and she IS KNOWN TO BE ALLERGIC TO PENICILLIN. During her hospital stay, she underwent echocardiog jennifer which showed the left ventricle to be of normal size and wall thickness. The ejection fraction was slightly depressed at 40-45% and there was some mild global hypokinesis. There was moderate to severe tricuspid regurgitation and moderate to severe pulmonary hypertension. The patient was follow ed by Dr. Schneider, the director of security, and Dr. Drake, the computer repair instructor, during her hospital stay. She is currently being treated with Eliquis 5 mg twice a day, Lasix 20 mg daily. She had been on Lev aquin, this was discontinued as of this morning, prednisone 30 mg daily, Pulmicort Respules 0.5 mg in haled q. 12 hours, Robitussin as needed for cough, Toprol-XL 50 mg, and Xopenex nebulizer treatments every 6 hours as well as every 2 hours if needed for shortness of breath. When seen today, the patie nt is sitting in a chair. She is awake, alert, oriented and comfortable. She is, however, concerned about coughing fits. She claims at 3:00 in the morning she awoke suddenly with a severe coughing sp ell. It was dry and nonproductive seen and she felt a short burst of atrial fibrillation caused by t he coughing spell. It did not really respond to Robitussin, which she had been receiving. At this p oint, she does have a dry cough during my visit with her today. PHYSICAL EXAMINATION: VITAL SIGNS: Her blood pressure is 137/80, heart rate is 82, and she is afebrile. LUNGS: Clear to auscultation and percussion. HEART: Regular. ABDOMEN: Soft and nontender. EXTREMITIES: Free of cyanosis, clubbing or edema. LABORATORY STUDIES: From yesterday were unremarkable CBC and serum chemistries. PLAN: So at this point, I will be starting Tessalon 200 mg 3 times a day. As per the patient this w orked well to quite the cough of her chronic bronchitis in the past, and we will reevaluate the patie nt in the morning with hopes of her being discharged to home at that time. Jorge Mullins MD cc: [id number] TT: 01/13/2017 11:48:24 Confirmation # [id number] Dictation # [id number] jn
--- NOTE | 2017-01-13 13:44 | CON ---
DATE: 01/13/2017 The patient is an 81-year-old female with a host of multiple medical issues (please refer to medical notes for complete medical history), who is admitted for chest discomfort, coughing and irregular hea rt rate on the medical floor. Psychiatry was consulted for patient's report of depression. I met wi th patient at bedside and patient is alert and oriented x 3 and she is well oriented to current circu mstances. The patient can communicate her needs well and thought process can be a little tangential and overinclusive, however, she is easily redirectable and generally is pleasant during our interview . The patient indicates that she wanted to see a psychiatrist because of her history of depression a nd has had difficulty finding psychiatric outpatient management. She is currently being treated with Wellbutrin-XL 300 mg daily and Xanax 0.5 mg at bedtime by her primary care doctor. However, she fee ls like this is an insufficient combination for chronic depression. The patient reports a history of chronic depression for years that has been treated with a variety of medications. She also reports worsening depression since the of her daughter in 2009 and of her in 2009 as well . The patient is not hopeless. The patient is not suicidal. She does not have wishes. She h as anxiety and her affect is a little anxious. She is not delusional and she is not hallucinating an d generally presents as a fairly reliable historian, except for her tangentiality of her thought proc ess. Her insight and judgment appear to be fair and there have been no behavioral issues on the unit . PSYCHIATRIC HISTORY: The patient denies any history of psychiatric inpatient hospitalizations and al so denies any history of suicide attempts. The patient reports that she used to be in treatment with Dr. Alexander up until spring 2013 and then saw a therapist who recommended her to see Dr. Saldana, who she saw in 2 sessions and last time she had been treated was /2013. Thereafter, she continu ed getting her psychiatric medications being prescribed to her by Dr. Duane Medina and these include Wellbutrin-XL 300 mg daily as well as Xanax 0.5 mg at bedtime. Nonetheless, patient continues to be depressed and reports that she has been living with chronic depression and it is difficult for her to motivate sometimes and she gets overwhelmed easily and even though she needs to get certain chores d one, it is very difficult for her to follow through. She has the motivation, but she does not have t he initiative. The patient does report prior treatment with Prozac, which she felt like was not bene ficial for her. Again, patient reports that she has difficulty obtaining outpatient psychiatric serv ices and thus asked for psychiatric followup today. SOCIAL HISTORY: The patient was around the age of [age] years old and had a child at age 19. S he has been for 46 years until she was in 2009. She has 2 sons, one of which is ____ _, who apparently works in the ER as an EMT. The patient also has another son who is 62 years old an d who works as a survey supervisor in [place] and has 6 children and he is also a grandfather. The patie nt had a daughter who in 2009 when she was 49 years ago. The patient took this very badly and reports that her depression worsened considerably after that. VITAL SIGNS: At 8:34 a.m. this morning, they were 97.4, , 166/92, 20. LABORATORY RESULTS: Were reviewed by this provider as well. MEDICATIONS: Reviewed and no psychiatric medications were started on the unit. IMPRESSION: Major depressive disorder, mild to moderate, recurrent, anxiety disorder, not otherwise specified, rule out generalized anxiety disorder. Rule out a contribution of adjustment disorder wit h depression and anxiety due to hospitalization. RECOMMENDATION: I would not discontinue patient's Wellbutrin and Xanax at this time and restart them as Wellbutrin-XL 300 mg a.m. and Xanax 0.5 mg at bedtime. The patient is also willing to try Lexapr o 5 mg at bedtime after I described therapeutic latency, indications, dosing and possible side effect s with her today. She is willing to follow up on an outpatient basis and needs somebody to meet with her and give her outpatient options in this regard. Please have social and political studies professor contact patient and shelbi ordoñez with her and outpatient psychiatric followup as this was the main goal for patient requesti ng psychiatric followup on the unit today. The patient is not a danger to herself or others. She is not overtly disorganized. She is not suicidal or homicidal. She is psychiatrically cleared and can be discharged when she is medically cleared. Again, I recommend a social and political studies professor come and follow up with patient and provide her outpatient psychiatric referrals so that she can get outpatient psychiat suman help. Dimas Zaldivar MD cc: [id number] TT: 01/13/2017 13:43:57 Confirmation # [id number] Dictation # [id number] en
[2017-01-14] MEDS: Levalbuterol 0.63 MG/3 ML Inhal Soln UD IH SCH ×3 (01:30→13:56)
[2017-01-14] MEDS: guaiFENesin 200 mg/10 ml Syrup UD PO PRN (01:55)
[2017-01-14] MEDS: Metoprolol Succinate 50 mg XL Tab PO SCH (08:03)
[2017-01-14 08:07] VITALS: PULSE 74
[2017-01-14] MEDS: Budesonide 0.5 mg/2 ml Inhal Susp UD IH SCH (08:22)
[2017-01-14 09:16] VITALS: RESP 18; TEMP 98.1; O2SAT 96
[2017-01-14 09:59] VITALS: BP 141/78
--- NOTE | 2017-05-05 16:24 | DS ---
HISTORY OF PRESENT ILLNESS: The patient is an 81-year-old female who was admitted with atrial fibrillation and rapid ventricular response. She is known to have a history of atrial fibrillation since 2013. She underwent cardiac ablation at that time. She is status post myocardial infarction in 2000, triple coronary artery bypass surgery in 2001. She is status post hysterectomy. During her hospital stay, she underwent echocardiography, which shows a left ventricle to be normal in size and wall thickness. Her ejection fraction was slightly depressed at 40% to 45%. There was some mild global hypokinesis. We noted severe tricuspid regurgitation and [id number] pulmonary hypertension. She is followed by Dr. Schneider the printing machinist and Dr. Drake the sifter and miller during the hospital stay. She was treated with Eliquis 5 mg twice a day, Lasix at 20 mg. She had been on Levaquin, but this was discontinued. She is also taking prednisone 30 mg once a day, Pulmicort Respules inhaled every 12 hours, Toprol-XL and Xopenex nebulizer. The patient restarted on treatment. She did have a nonproductive cough, which was concerned, so she was started on Tessalon 200 mg three times a day. As the patient improved, arrangements were made for her to be discharged to home. Prescriptions for cough were called into local pharmacy. She was instructed to call an office visit one week post discharge. She was discharged in improved condition. FINAL DIAGNOSES: 1. Atrial fibrillation. 2. Congestive heart failure. 3. Coronary artery disease. 4. Cardiac valvular disease. 5. Pulmonary hypertension. Jorge Mullins MD
== END 2017-01-14 14:14 | disposition home or self-care (01) | DRG 191 ==
LOC: ED 20:22 → ERH 22:28 → 2RNO 23:47 → 3RSO 01-12 16:20
PROVIDERS: ADMIT Internal Medicine; ATTEND Internal Medicine
DX: J44.0 Chronic obstructive pulmonary disease with (acute) lower respiratory infection (principal); J20.9 Acute bronchitis, unspecified; F33.1 Major depressive disorder, recurrent, moderate; J44.1 Chronic obstructive pulmonary disease with (acute) exacerbation; I27.2 Other secondary pulmonary hypertension; I48.0 Paroxysmal atrial fibrillation; D64.9 Anemia, unspecified; I48.2 Chronic atrial fibrillation; I25.10 Atherosclerotic heart disease of native coronary artery without angina pectoris; I08.1 Rheumatic disorders of both mitral and tricuspid valves; I10 Essential (primary) hypertension; H35.30 Unspecified macular degeneration; F41.9 Anxiety disorder, unspecified; E78.5 Hyperlipidemia, unspecified; E03.9 Hypothyroidism, unspecified; M19.90 Unspecified osteoarthritis, unspecified site; K21.9 Gastro-esophageal reflux disease without esophagitis; I25.2 Old myocardial infarction; Z95.1 Presence of aortocoronary bypass graft; Z88.0 Allergy status to penicillin

== ENCOUNTER 2017-03-11 22:56 | Observation (INO) | payer MEDICARE, OTHER ==
[2017-03-11 23:01] VITALS: BMI 35.9
[2017-03-11] MEDS ORDERED: Morphine 2 mg/ml ISec IVP STA (23:08)
--- NOTE | 2017-03-11 23:09 | ED PDOC ---
Arrival/HPI - General Time Seen by Provider: 03/11/17 22:57 Historian: Patient - History of Present Illness Narrative History of Present Illness (Text): 03/11/17 23:06 Carrie Dang is an 81 year old female, whose past medical history includes atrial fibrillation with cardiac ablation on Eliquis, IN, and CABG, who presents to the Emergency department brought in by EMS for chest pain. Patient states prior to arrival she began experiencing burning mid-sternal chest pain which she originally attributed to acid reflux and took her acid reflux medication without relief. Patient reports chest pain became sharp and began radiating to her epigastric region. Patient states she took 3 nitroglycerins and 2 aspirin at home prior to arrival. Patient denies any fever, chills, shortness of breath, nausea, vomiting, diarrhea, urinary symptoms, back pain, neck pain, headache, dizziness, or any other complaints. PMD: Dr. Juan Diego Mullins Time/Duration: Prior to Arrival Symptom Onset: Sudden Symptom Course: Unchanged Activities at Onset: Rest, Light Context: Home Past Medical History - Provider Review Nursing Documentation Reviewed: Yes - Infectious Disease Hx of Infectious Diseases: None - Tetanus Immunization Tetanus Immunization: Unknown - Cardiac Hx Atrial Fibrillation: Yes (? ablation) Hx Peripheral Edema: Yes Other/Comment: triple bypass - HEENT Hx HEENT Disorder: (glasses) Hx Macular Degeneration: Yes (Left) - Renal Hx Renal Disorder: No - Endocrine/Metabolic Hx Hypothyroidism: Yes - Hematological/Oncological Hx Blood Disorders: No - Integumentary Hx Dermatological Disorder: No - Musculoskeletal/Rheumatological Hx Arthritis: Yes - Gastrointestinal Hx Gastroesophageal Reflux: Yes - Genitourinary/Gynecological Hx Genitourinary Disorders: No - Psychiatric Hx Substance Use: No - Surgical History Hx Coronary Artery Bypass Graft: Yes Hx Hysterectomy: Yes - Anesthesia Hx Anesthesia: Yes Hx Anesthesia Reactions: No Hx Malignant Hyperthermia: No - Suicidal Assessment Feels Threatened In Home Enviroment: No Family/Social History - Physician Review Nursing Documentation Reviewed: Yes Family/Social History: No Known Family HX Smoking Status: Never Smoked Hx Alcohol Use: No Hx Substance Use: No Hx Substance Use Treatment: No Allergies/Home Meds Allergies/Adverse Reactions: Allergies erythromycin base Allergy (Verified 03/11/17 22:59) RASH Penicillins Allergy (Verified 03/11/17 22:59) RASH Home Medications: Home Meds Medication Instructions Recorded Confirmed Apixaban [Eliquis] 5 mg PO DAILY 03/12/17 03/12/17 Levothyroxine [Synthroid] 137 mcg PO DAILY 03/12/17 03/12/17 Metoprolol Succinate [Toprol XL] 50 mg PO BID 03/12/17 03/12/17 buPROPion [Bupropion HCl] 300 mg PO DAILY 03/12/17 03/12/17 Review of Systems - Physician Review All systems were reviewed & negative as marked: Yes - Review of Systems Constitutional: Normal. absent: Fevers Eyes: Normal ENT: Normal Respiratory: Normal. absent: SOB, Cough Cardiovascular: Chest Pain Gastrointestinal: Normal. absent: Abdominal Pain, Diarrhea, Nausea, Vomiting Genitourinary Female: Normal. absent: Dysuria, Frequency, Hematuria, Urine Output Changes Musculoskeletal: Normal. absent: Back Pain, Neck Pain Skin: Normal. absent: Rash Neurological: Normal. absent: Headache, Dizziness Endocrine: Normal Hemo/Lymphatic: Normal Psychiatric: Normal Physical Exam Vital Signs Reviewed: Yes Vital Signs Temp Pulse Resp BP Pulse Ox 03/12/17 01:21 98 F 86 19 137/74 100 03/12/17 01:15 97 F L 80 20 137/74 100 03/12/17 01:04 98 F 88 20 150/82 99 03/11/17 23:09 98 F 95 H 20 161/79 H 96 Temperature: Afebrile Blood Pressure: Normal Pulse: Regular Respiratory Rate: Normal Appearance: Positive for: Well-Appearing, Non-Toxic, Comfortable Pain Distress: None Mental Status: Positive for: Alert and Oriented X 3 - Systems Exam Head: Present: Atraumatic, Normocephalic Pupils: Present: PERRL Extroacular Muscles: Present: EOMI Conjunctiva: Present: Normal Mouth: Present: Moist Mucous Membranes Neck: Present: Normal Range of Motion Respiratory/Chest: Present: Clear to Auscultation, Good Air Exchange. No: Respiratory Distress, Accessory Muscle Use Cardiovascular: Present: Regular Rate and Rhythm, Normal S1, S2. No: Murmurs Abdomen: Present: Normal Bowel Sounds. No: Tenderness, Distention, Peritoneal Signs Back: Present: Normal Inspection Upper Extremity: Present: Normal Inspection. No: Cyanosis, Edema Lower Extremity: Present: Normal Inspection. No: Edema Neurological: Present: GCS=15, CN II-XII Intact, Speech Normal Skin: Present: Warm, Dry, Normal Color. No: Rashes Psychiatric: Present: Alert, Oriented x 3, Normal Insight, Normal Concentration Medical Decision Making ED Course and Treatment: 03/11/17 23:06 Impression: 81 year old female brought in for chest pain. Plan: -- EKG -- Chest X-ray -- Labs, cardiac enzymes, lipase -- UA -- Morphine -- Reassess and disposition Prior Visits: Notes and results from previous visits were reviewed. On 01/08/2017, pt was seen in the Emergency department for palpitations, chest discomfort, and cough. Pt was admitted to the hospital for further evaluation. Progress Notes: Reviewed EKG, a fib at 95 bpm. Non-specific ST/T wave changes. 03/12/17 00:05 Reviewed radiology, Chest X-ray shows no acute processes. 03/12/17 01:[address] Shoaib Mullins, who is aware and agrees with plan. Accepts pt in to his service. Pt will go to Telemetry observation for chest pain. Pt is no acute distress. Discussed results and hospital observation plan with pt , who is aware and verbalizes understanding. - Lab Interpretations Lab Results: 03/11/17 23:05 03/11/17 23:05 Lab Results 03/11/17 23:05: Sodium 137, Potassium 3.9, Chloride 104, Carbon Dioxide 23, Anion Gap 14, BUN 23 H, Creatinine 1.0, Est GFR ( Amer) > 60, Est GFR ( Non-Af Amer) 53, Random Glucose 118 H, Calcium 8.9, Magnesium 2.0, Total Bilirubin 0.4, AST 23, ALT 29, Alkaline Phosphatase 52, Lactate Dehydrogenase 421, Total Creatine Kinase 24 L, Troponin I < 0.01 D, Total Protein 7.0, Albumin 3.8, Globulin 3.2, Albumin/Globulin Ratio 1.2, Lipase 128 03/11/17 23:05: PT 11.6, INR 1.07, APTT 30.3 03/11/17 23:05: WBC 7.4 D, RBC 3.93, Hgb 12.5, Hct 37.5, MCV 95.4, MCH 31.8, MCHC 33.3, RDW 13.7, Plt Count 268, MPV 10.1, Gran % 53.5, Lymph % (Auto) 31.8, [place] % (Auto) 8.1 H, Eos % (Auto) 6.2 H, Baso % (Auto) 0.4, Gran # 3.94, Lymph # 2.3, [place] # 0.6, Eos # 0.5, Baso # 0.03 - RAD Interpretation Radiology Orders: 03/11/17 23:09 CHEST PORTABLE [RAD] Stat - Medication Orders Current Medication Orders: Discontinued Medications Acetaminophen (Tylenol 325mg Tab) 650 mg PO Q4H PRN PRN Reason: Pain, Mild (1-3) Alprazolam (Xanax) 0.5 mg PO HS PRN; Protocol PRN Reason: Anxiety Last Admin: 03/12/17 22:47 Dose: 0.5 mg Re-Assess: Reassess Psych Meds Document 03/12/17 23:47 FDE (Rec: 03/13/17 01:16 FDE [id number]) Reassess Psych Med Effective Apixaban (Eliquis) 5 mg PO STAT STA PRN Reason: Protocol Stop: 03/12/17 07:13 Last Admin: 03/12/17 07:21 Dose: 5 mg Apixaban (Eliquis) 5 mg PO BID JENNY PRN Reason: Protocol Last Admin: 03/13/17 11:04 Dose: 5 mg Bupropion HCl (Wellbutrin) 300 mg PO DAILY JENNY Last Admin: 03/13/17 10:58 Dose: 300 mg Levothyroxine Sodium (Synthroid) 112 mcg PO ACB JENNY Last Admin: 03/13/17 08:15 Dose: 112 mcg Levothyroxine Sodium (Synthroid) 25 mcg PO ACB [facility] Last Admin: 03/13/17 08:16 Dose: 25 mcg Levothyroxine Sodium (Synthroid) 112 mcg PO ONCE ONE Stop: 03/12/17 09:31 Last Admin: 03/12/17 10:04 Dose: 112 mcg Levothyroxine Sodium (Synthroid) 25 mcg PO ONCE ONE Stop: 03/12/17 09:31 Last Admin: 03/12/17 10:04 Dose: 25 mcg Metoprolol Succinate (Toprol Xl) 50 mg PO STAT STA Stop: 03/12/17 07:12 Last Admin: 03/12/17 07:21 Dose: 50 mg Metoprolol Succinate (Toprol Xl) 50 mg PO BID [facility] Last Admin: 03/13/17 10:59 Dose: 50 mg Morphine Sulfate (Morphine) 2 mg IVP STAT STA Stop: 03/11/17 23:09 Last Admin: 03/11/17 23:26 Dose: 2 mg Re-Assess: GORAN Pain Assessment Document 03/12/17 00:26 GMI (Rec: 03/12/17 01:39 GMI [id number]) Pain Reassessment Is this a pain reassessment? Yes Sleep Is patient sleeping during reassessment? No Presence of Pain Presence of Pain No Pantoprazole Sodium (Protonix Ec Tab) 40 mg PO 0630 [facility] Last Admin: 03/13/17 05:47 Dose: 40 mg Pantoprazole Sodium (Protonix Ec Tab) 40 mg PO STAT STA Stop: 03/12/17 18:23 Last Admin: 03/12/17 18:36 Dose: 40 mg - Leoibe Statement The provider has reviewed the documentation as recorded by the Elie León All medical record entries made by the Elie were at my direction and personally dictated by me. I have reviewed the chart and agree that the record accurately reflects my personal performance of the history, physical exam, medical decision making, and the department course for this patient. I have also personally directed, reviewed, and agree with the discharge instructions and disposition. Disposition/Present on Arrival - Present on Arrival Any Indicators Present on Arrival: No History of DVT/PE: No History of Uncontrolled Diabetes: No Urinary Catheter: No History Surgical Site Infection Following: None - Disposition Have Diagnosis and Disposition been Completed?: Yes Diagnosis: Chest pain Disposition: HOSPITALIZED Disposition Time: 00:05 Condition: GOOD
[2017-03-11 23:24] LABS: ADD MANUAL DIFF? NO
[2017-03-11 23:31] LABS: BASO # 0.03 K/mm3 (0.0-2.0); BASO % 0.4 % (0.0-3.0); EOS # 0.5 (0.0-0.7); EOS % 6.2 % (1.5-5.0); GRAN # 3.94 (1.4-6.5); GRAN % 53.5 % (50.0-68.0); HEMATOCRIT 37.5 % (36.0-48.0); LYMPH # 2.3 (1.2-3.4); LYMPH % 31.8 % (22.0-35.0); MEAN CELL VOLUME 95.4 fL (80.0-105.0); MEAN CORPUSCULAR HEMOGLOBIN 31.8 pg (25.0-35.0); MEAN CORPUSCULAR HGB CONC 33.3 g/dl (31.0-37.0); MEAN PLATELET VOLUME 10.1 fl (7.0-11.0); MONO # 0.6 (0.1-0.6); MONO % 8.1 % (1.0-6.0); PLATELET COUNT 268 10^3/uL (120.0-450.0); RED CELL DISTRIBUTION WIDTH 13.7 % (11.5-14.5); WHITE BLOOD COUNT 7.4 10^3/ul (4.5-11.0)
[2017-03-11 23:34] LABS: ALB/GLOB RATIO 1.2 (1.1-1.8); ALKALINE PHOSPHATASE 52 U/L (38-133); ALT/SGPT 29 U/L (7-56); AST/SGOT 23 U/L (15-39); BILIRUBIN,TOTAL 0.4 mg/dL (0.2-1.3); BLOOD UREA NITROGEN 23 mg/dL (7-21); CALCIUM 8.9 mg/dL (8.4-10.5); CARBON DIOXIDE 23 mmol/L (21-33); CHLORIDE 104 mmol/L (98-107); GFR AFRICAN-AMERICAN > 60; GLUCOSE,RANDOM 118 mg/dL (70-110); LIPASE 128 U/L (23-300); POTASSIUM 3.9 mmol/L (3.6-5.0); SODIUM 137 mmol/L (132-148)
[2017-03-11 23:36] LABS: INR 1.07 (0.93-1.08); PARTIAL THROMBOPLASTIN TIME 30.3 Seconds (23.7-30.8)
[2017-03-12 00:13] LABS: TROPONIN I < 0.01 ng/mL
[2017-03-12 03:22] LABS: URINE BILIRUBIN NEGATIVE (NEGATIVE); URINE BLOOD TRACE-INTACT (NEGATIVE); URINE GLUCOSE (UA) NEGATIVE (NEGATIVE); URINE KETONE NEGATIVE (NEGATIVE); URINE LEUKOCYTE ESTERASE SMALL Leu/uL (NEGATIVE); URINE PROTEIN NEGATIVE mg/dL (<30 mg/dL); URINE UROBILINOGEN 0.2 E.U./dL (<1 E.U./dL)
[2017-03-12 03:23] LABS: URINE APPEARANCE CLEAR (CLEAR); URINE COLOR YELLOW (YELLOW)
[2017-03-12 03:38] LABS: URINE AMORPHOUS SEDIMENT FEW; URINE BACTERIA MOD (NEG)
[2017-03-12] MEDS ORDERED: Metoprolol Succinate 50 mg XL Tab PO STA (07:11)
[2017-03-12] MEDS ORDERED: Levothyroxine 25 MCG TAB PO ONE (09:30)
[2017-03-12] MEDS ORDERED: Levothyroxine 112 MCG TAB PO ONE (09:30)
[2017-03-12] MEDS ORDERED: Levothyroxine 125 MCG TAB PO SCH (10:00)
[2017-03-12] MEDS: Metoprolol Succinate 50 mg XL Tab PO SCH ×2 (10:00→17:17)
--- NOTE | 2017-03-12 10:10 | CARD ---
APPROVED REPORT EKG Measurement Heart [id number] <Conclusion> Atrial fibrillation with premature ventricular or aberrantly conducted complex STTW changes c/w ischemia No change except the rate is slower.
--- NOTE | 2017-03-12 10:16 | CARD ---
APPROVED REPORT EKG Measurement Heart [id number] <Conclusion> Helen Escalante PVC's-new IVCD LVH STTW changes c/w ischemia
--- NOTE | 2017-03-12 12:28 | RAD ---
HISTORY: Chest pain. COMPARISON: 01/08/2017. FINDINGS: LUNGS: No active pulmonary disease. PLEURA: No significant pleural effusion identified, no pneumothorax apparent. CARDIOVASCULAR: Cardiomegaly. No evidence of acute, significant cardiovascular disease. OSSEOUS STRUCTURES: No significant abnormalities. VISUALIZED UPPER ABDOMEN: Normal. OTHER FINDINGS: None. IMPRESSION: No active disease. No significant interval change compared to the prior examination(s). No preliminary interpretation rendered by the emergency department physician
--- NOTE | 2017-03-12 12:38 | CON ---
DATE: 03/12/2017 INDICATIONS: Chest pain. HISTORY OF PRESENT ILLNESS: This is an 81-year-old woman who is known to me, admitted with chest pain. She developed a substernal aching discomfort yesterday in the evening. It felt like heartburn. She took antacid. She got no relief. She tried nitroglycerin and aspirin. The pain persisted. She came to the Emergency Room and was admitted to telemetry. The pain subsided. The first troponin is negative. This morning, she is resting comfortably in bed. There is no chest pain, shortness of breath, orthopnea, PND, syncope, presyncope, lightheadedness, dizziness, vertigo, palpitations, edema, claudication, fever, chills, cough, sputum production, hemoptysis, abdominal pain, nausea, vomiting, diarrhea, constipation, or melena. PAST MEDICAL HISTORY: Notable for recent hospitalization in December. She had atrial fibrillation with rapid ventricular response. An echocardiogram demonstrated mild LV dysfunction with moderate MR, moderate to severe tricuspid regurgitation and pulmonary hypertension. She has coronary artery disease with a remote coronary bypass operation. She has chronic AFib with a history of an atrial flutter ablation. There is a history of hypertension, hyperlipidemia, anxiety, depression, hypothyroidism, macular degeneration, and hysterectomy. There is no history of rheumatic fever, CO, congestive heart failure, stroke, TIA, diabetes, or gout. MEDICATIONS: At the time of admission include Eliquis, Synthroid, metoprolol, bupropion. ALLERGIES: SHE NOTES AN ALLERGY TO PENICILLIN AND ERYTHROMYCIN. SOCIAL HISTORY: She lives at home alone, but her son is local. She does not smoke. She does not drink alcohol. She is ambulatory. FAMILY HISTORY: Noncontributory. REVIEW OF SYSTEMS: A 10-point review of systems is otherwise unremarkable except as noted above. PHYSICAL EXAMINATION: GENERAL: She is a well-developed woman lying in bed on telemetry in no acute distress. VITAL SIGNS: She is in atrial fibrillation at about 80-88 beats per minute. She is afebrile, blood pressure 134/55, respirations 20, O2 sat 100% on nasal cannula. HEENT: Reveals no neck vein distention, thyromegaly, or carotid bruits. Mucous membranes are moist. Conjunctivae are pink. NECK: Supple. LUNGS: Lung burrell are clear. HEART: Revealed normal first and second heart sounds. There is a systolic murmur along the left sternal border and at the apex. ABDOMEN: Soft. Bowel sounds are present. No mass, organomegaly, tenderness, rebound, guarding, CVA tenderness, or palpable abdominal aortic aneurysm. EXTREMITIES: Reveals no cyanosis, clubbing, or edema. NEUROLOGIC: She is awake, alert, oriented, and intact. SKIN: Warm and dry. No rash or cellulitis. PSYCHIATRIC: Normal as to mood and affect. LABORATORY AND IMAGING: A chest x-ray is a portable study. It is not interpreted yet. I do not appreciate infiltrate, effusion, or CHF. EKG demonstrates atrial fibrillation, ST-T wave changes, LVH. No change from a prior EKG. CBC is unremarkable. PT, INR, and PTT unremarkable. Electrolytes, BUN, creatinine, blood sugar unremarkable. LFTs unremarkable. CK 24, troponin less than 0.01. Lipase 128. Urinalysis is noted. IMPRESSION: The patient is an 81-year-old woman who complains of chest discomfort, which has ischemic features that resolved slowly. The first troponin was negative. EKG shows atrial fibrillation and chronic ST changes. She is admitted to telemetry. We will get another set of enzymes and an EKG this morning. We will continue her metoprolol and Eliquis. I will review her old records. She will be considered for cardiac stress testing - timing to be determined. If chest pain is recurrent, direct cardiac catheterization will be considered. She can be out of bed to chair. We will check I's and O's and stool for occult blood. I will follow along with you. I will make additional recommendations based on her clinical course. Elia Hernandez MD cc: [id number] TT: 03/12/2017 12:37:36 Confirmation # [id number] Dictation # [id number] jn [email or web address]
[2017-03-12] MEDS ORDERED: Pantoprazole 40 mg EC Tab PO STA (18:22)
[2017-03-13 01:11] VITALS: O2SAT 98
[2017-03-13] MEDS ORDERED: Pantoprazole 40 mg EC Tab PO SCH (06:30)
[2017-03-13 06:44] LABS: CHOLESTEROL 207 mg/dL (130-200)
[2017-03-13 07:01] LABS: TROPONIN I < 0.01 ng/mL
[2017-03-13] MEDS ORDERED: Levothyroxine 25 MCG TAB PO SCH (07:30)
[2017-03-13] MEDS ORDERED: Levothyroxine 112 MCG TAB PO SCH (07:30)
--- NOTE | 2017-03-13 07:59 | CP.PCM.PN ---
Subjective - Date & Time of Evaluation Date of Evaluation: 03/13/17 Time of Evaluation: 07:00 - Subjective Subjective: Stable on 2R. She feels well. No chest pain or SOB. V/S noted. RSR PE: Lungs: clear Cor.: S1S2 Abd.: soft Ext.: no edema Neuro.: alert Labs noted: trops neg x 4. LDL = 134 ECG 03/12 noted: RSR, PVC's, LVH, STTW changes. No change Objective - Vital Signs/Intake and Output Vital Signs (last 24 hours): Temp Pulse Resp BP Pulse Ox 97.6 F 77 18 150/81 98 03/13/17 06:00 03/13/17 06:00 03/13/17 06:00 03/13/17 06:00 03/13/17 06:00 Intake and Output: 03/13/17 03/13/17 06:59 18:59 Intake Total 400 Output Total 0 Balance 400 - Medications Medications: Current Medications Acetaminophen (Tylenol 325mg Tab) 650 mg PO Q4H PRN PRN Reason: Pain, Mild (1-3) Alprazolam (Xanax) 0.5 mg PO HS PRN; Protocol PRN Reason: Anxiety Last Admin: 03/12/17 22:47 Dose: 0.5 mg Apixaban (Eliquis) 5 mg PO BID [facility] PRN Reason: Protocol Last Admin: 03/12/17 17:17 Dose: 5 mg Bupropion HCl (Wellbutrin) 300 mg PO DAILY [facility] Last Admin: 03/12/17 10:04 Dose: 300 mg Levothyroxine Sodium (Synthroid) 112 mcg PO ACB JENNY Levothyroxine Sodium (Synthroid) 25 mcg PO ACB [facility] Metoprolol Succinate (Toprol Xl) 50 mg PO BID [facility] Last Admin: 03/12/17 17:17 Dose: 50 mg Pantoprazole Sodium (Protonix Ec Tab) 40 mg PO 0630 [facility] Last Admin: 03/13/17 05:47 Dose: 40 mg - Labs Labs: PT 11.6 Seconds (9.9-11.8) 03/11/17 23:05 INR 1.07 (0.93-1.08) 03/11/17 23:05 APTT 30.3 Seconds (23.7-30.8) 03/11/17 23:05 Assessment and Plan - Assessment and Plan (Free Text) Plan: Assessment: CP CAD/CABG Chronic AF S/P remote A. Flutter ablation HBP HLD Anxiety/Depression Hypothyroidism S/P hysterectomy Macular degeneration Echo 01/16: Mod. MR, Mod/Sev. TR and PH Plan: OK for D/C home today. Will arrange out-pt. nuclear stress test She will call if symptoms recur.
[2017-03-13] MEDS: Metoprolol Succinate 50 mg XL Tab PO SCH (10:59)
[2017-03-13 12:56] VITALS: BP 133/67; PULSE 80; RESP 21; TEMP 97.1
--- NOTE | 2017-03-13 16:50 | HP ---
HISTORY OF PRESENT ILLNESS: The patient is an 81-year-old female who presents to the Emergency Room complaining of chest pain with retrosternal chest pain radiating down to the midepigastric area. It was quite sharp. It did not respond to sublingual nitroglycerin x 3 or to antacids, so therefore the patient was concerned and presented to the Emergency Room. Her symptoms were not associated with diap horesis, shortness of breath, palpitations, lightheadedness, nausea or vomiting. PAST MEDICAL HISTORY: The patient is known to have a past medical history positive for atrial fibril lation status post cardiac ablation. She has a history of macular degeneration, gastroesophageal ref lux, osteoarthritis. Status post coronary artery bypass grafting x 4. ALLERGIES: SHE IS KNOWN TO BE ALLERGIC TO ERYTHROMYCIN AND PENICILLIN. SOCIAL HISTORY: She never smoked. She is a nonalcoholic drinker. MEDICATIONS: At the time of admission included Eliquis 5 mg 4 times a day. She was also on Protonix 40 mg, Synthroid 112 mcg, as well as Synthroid 25 mcg, metoprolol succinate 50 mg twice a day and We llbutrin 300 mg once a day, Xanax 0.5 mg at bedtime p.r.n. REVIEW OF SYSTEMS: Otherwise unremarkable. PHYSICAL EXAMINATION: HEENT: Unremarkable. NECK: Supple, with no lymphadenopathy, no goiter. LUNGS: Clear to auscultation and percussion. HEART: Sounds are irregular. ABDOMEN: There is no pain on palpation of the thorax. Abdomen is soft, nontender. There is no ____ _ epigastric tenderness on palpation. VITAL SIGNS: Stable. LABORATORY STUDIES: Reveal a white blood cell count of 7.4, hemoglobin and hematocrit of 12.5 and 37 .5 respectively, platelet count is 268. Sodium is 137, potassium 3.7. Blood urea nitrogen is slight ly elevated at 23, creatinine is 0.1. Nonfasting glucose is 118. Chest x-ray shows no acute disease . EKG shows atrial fibrillation with ST-T wave changes consistent with lateral ischemia. There are P VCs presents but this apparently is no change from previous tracings. PLAN: So the patient is admitted to telemetry. She will be followed by cardiology, Dr. Hernandez, and we will reevaluate the patient in the morning. Jorge Mullins MD cc: [id number] TT: 03/13/2017 16:49:36 ln
== END 2017-03-13 14:27 | disposition home or self-care (01) ==
LOC: ED 22:56 → ERH 03-12 01:07 → 2RNO 03-12 02:36
PROVIDERS: ADMIT Internal Medicine; ATTEND Internal Medicine
DX: R07.89 Other chest pain (principal); I48.2 Chronic atrial fibrillation; I25.10 Atherosclerotic heart disease of native coronary artery without angina pectoris; K21.9 Gastro-esophageal reflux disease without esophagitis; I27.2 Other secondary pulmonary hypertension; I10 Essential (primary) hypertension; F41.9 Anxiety disorder, unspecified; F32.9 Major depressive disorder, single episode, unspecified; E78.5 Hyperlipidemia, unspecified; E03.9 Hypothyroidism, unspecified; I08.1 Rheumatic disorders of both mitral and tricuspid valves; H35.30 Unspecified macular degeneration; M19.90 Unspecified osteoarthritis, unspecified site; Z95.1 Presence of aortocoronary bypass graft; Z90.710 Acquired absence of both cervix and uterus; Z88.0 Allergy status to penicillin
CPT/HCPCS: 36415; 71010; 80053; 80061; 81001; 82550; 83615; 83690; 83735; 84484; 85025; 85610; 85730; 93005; 96374; 99285; G0378; J2270